=== PATIENT | male | born 1930 | race Caucasian/White ===

== ENCOUNTER 2016-08-30 05:26 | Observation (INO) | payer OTHER ==
[~2016-08-30] VITALS: Ht 175.3 cm; Wt 90.7 kg
[2016-08-30 06:31] LABS: PT 14.9 SEC (9.4-12.5)
--- NOTE | 2016-08-30 09:13 | Operative Report ---
Operative/Inv Procedure Report Surgery Date: 08/30/16 Name of Procedure: Pacemaker implantation Pre-Operative Diagnosis: Sick sinus syndrome Post-Operative Diagnosis: same Estimated Blood Loss: scant Surgeon/Fabrication Lead: NASRIN TREADWELL MD Anesthesia: moderate sedation Monitors: Tely IV Fluids: none Implants: single chamber pacemaker Urine Output: na Drains: none Specimens: none Microbiology: none Tourniquet: none Complications: none Condition: stable Operative Indication: Tachy boom syndrome Operative/Procedure Note Note: Informed consent obtained. Patient was brought to OR in a fasting state. Time out performed. Moderate sedation provided by aneshesia. Skin was infiltrated with 1% lidocaine. Incision was made 1 inch under the left clavicle. Left subclavian vein was intered and guidewire was placed under floroscopic guidance. Safe sheath was placed over the guidewire. Ventricular lead was placed through the sheath and positioned in the right venticular mid septal area and screwed into he myocardium Pacer lead was tested. (V lead threshold was 0.6, Impedance 1093, R wave 9.2). Wound was flushed with Kefzoll irrigation. Pacemaker was attached to the lead and screw was tightened. Pocket flushed with atb solution. Generator was introduced to the pocket and closed with 3 layers of Vicryl. Wound covered with steri strips and Tegaderm dressing. Patient was brought to same day surgery in stable condition. No complications. Discharge Disposition: PACU Additional Comments: none CC: DARIA VERMA MD
--- NOTE | 2016-08-30 09:50 | RADIOLOGY REPORT ---
EXAMINATION: XR PORTABLE CHEST CLINICAL INFORMATION: Post pacemaker placement. Evaluate for pneumothorax COMPARISON: None TECHNIQUE: Portable AP view of the chest was obtained. FINDINGS: Lordotic projection. Monitoring devices overlie the patient. There is a power source in the left pectoral soft tissues with leads projecting in the region of the right ventricle. There is tortuosity aorta. The cardiac size is top normal. There is no hilar mass. No edema. No consolidation, pleural fluid or pneumothorax. IMPRESSION: No pneumothorax post pacemaker placement.
[2016-08-30] MEDS ORDERED: LIPITOR20 M2 PO (13:46)
[2016-08-30] MEDS ORDERED: IRON325 M3 PO (13:47)
[2016-08-30] MEDS ORDERED: VITAMIN B-121000 MC3 PO (13:48)
[2016-08-30] MEDS ORDERED: LISINOPRIL20 M1 PO (13:49)
[2016-08-30] MEDS ORDERED: NEXIUM40 M1 PO (13:50)
[2016-08-30] MEDS ORDERED: ASPIRIN81 M4 PO (13:50)
[2016-08-30] MEDS ORDERED: COUMADIN5 M2 PO ×2 (13:53→13:56)
--- NOTE | 2016-08-30 15:19 | RADIOLOGY REPORT ---
EXAMINATION:\H\ \N\XR CHEST CLINICAL INFORMATION: Pacemaker placement. COMPARISON: Chest x-ray dated 08/30/2016. TECHNIQUE: Fluoroscopic equipment was dedicated to the operating room for the performance of a pacemaker placement. 7 spot films were acquired and are submitted for review. FLUOROSCOPY TIME: 2.1 minutes. FINDINGS: Single lead pacer placement is documented at various stages with the final image demonstrating positioning of the lead overlying the right ventricle. IMPRESSION: Single lead pacer placement with tip projecting over the right ventricular region.
[2016-08-30 16:49] VITALS: BP 149/76
[2016-08-30 22:35] VITALS: BP 118/70
--- NOTE | 2016-08-31 07:41 | PN- Cardiology ---
Subjective Subjective: no complaints Objective Vital Signs and I&Os Vital Signs Date Time Temp Pulse Resp B/P Pulse O2 O2 Flow FiO2 Ox Delivery Rate 08/30 2235 99.0 105 16 118/70 95 Room Air 08/30 2114 105 118/70 08/30 1649 97.6 105 18 149/76 94 Room Air 08/30 1421 81 130/70 Intake & Output 08/31 0800 08/31 0000 08/30 1600 08/30 0800 08/30 0000 08/29 1600 Intake Total 150 150 240 Output Total Balance 150 150 240 Intake, IV 30 30 Intake, Oral 120 120 240 Number 1 Bowel Movements Patient 200 lb Weight Physical Exam: Lungs-CTA Heart-S1S2 irregular pacer incision-no hematoma or erythema Abdomen-soft, not tender, BS+ Extr-no edema, 2+ pulses Current Medications: Current Medications Sig/Nayely Start time Last Medication Dose Route Stop Time Status Admin Cefazolin Sodium 1,000 MG Q8H 08/30 2200 AC 08/31 IV 08/31 1401 0609 Cefazolin Sodium 1,000 MG Q8H 08/30 1400 DC 08/30 IV 08/31 0601 1421 Cefazolin Sodium 1,000 MG Q8H 08/30 1100 DC IV 08/31 0301 Cefazolin Sodium 1,000 MG ONCE 08/30 0000 DC IV 08/30 2359 Diltiazem HCl 60 MG BID 08/30 2200 AC 08/30 PO 2114 Lisinopril 40 MG DAILY 08/30 1000 AC 08/30 PO 1421 Patient Medication 1 ED .STK-MED ONE 08/30 1346 DC Teaching ED 08/30 1347 Warfarin Sodium 2.5 MG COUMADIN 1700 08/30 1700 DC 08/30 PO 08/30 1701 1736 Results Last 48 Hrs of Labs/Mics: Laboratory Tests 08/30/16 0614: PT 14.9 H, INR 1.42 H Recent Imaging Studies: CXR-no PNX, RV lead in right ventricle Assessment/Plan Assessment/Plan SSS s/p pacer Plan: CXR, pacer interrogation today-if oK, discharge home later today f/u with me in 10 days Warfarin resumed yesterday resume ASA in 4 days Continue telemetry? Yes
[2016-08-31 08:28] VITALS: BP 142/78
[2016-08-31 09:30] VITALS: BP 142/78
--- NOTE | 2016-08-31 11:00 | RADIOLOGY REPORT ---
EXAMINATION: XR CHEST CLINICAL INFORMATION: Status post pacemaker COMPARISON: 08/30/2016 TECHNIQUE: 2 views of the chest were obtained. FINDINGS: Lungs are well expanded and clear with exception of a linear opacity of atelectasis in the retrocardiac region of the left lower lobe. No pneumothorax, pulmonary edema or pleural effusion. Stable appearance of the enlarged cardiac silhouette. There is a left pectoral region cardiac pacemaker with single lead terminating over the right ventricle. At the T12 level, there is an anterior vertebral compression deformity with approximately 30% anterior height loss. IMPRESSION: 1. Single lead cardiac pacemaker appears to be in satisfactory position. 2. Cardiomegaly without pulmonary edema.
== END 2016-08-31 13:05 ==
LOC: ENRESERVDT → ENRESERVTM → STS 05:26 → SDA 07:00 → STS 07:00 → EDSTATUS 07:00 → ENPENDDIS 09:09 → PACUH 09:09 → 1NO 11:56
PROVIDERS: ADMIT Internal Medicine Cardiovascular Disease
DX: I49.5 Sick sinus syndrome (principal)
CPT/HCPCS: 6020; 36415; 93005; 93010; C1786; C1898; G0378; J0690